=== PATIENT | male | born 2000 | race Caucasian/White ===

== ENCOUNTER 2024-04-10 10:07 | Emergency (ER) | payer SELFPAY ==
[~2024-04-10] VITALS: Ht 172.7 cm; Wt 73.0 kg
[2024-04-10 10:10] VITALS: BP 106/64; PULSE 71; TEMP 98.4; O2SAT 98
[2024-04-10] MEDS ORDERED: PSYL575P22 MT (10:24)
[2024-04-10 10:45] VITALS: RESP 16
== END 2024-04-10 11:10 | disposition home or self-care (01) ==
LOC: ER 10:07
DX: K59.00 Constipation, unspecified (principal)
CPT/HCPCS: 99282